=== PATIENT | male | born 1995 | race Hispanic/Latino ===

== ENCOUNTER 2021-07-16 12:17 | Emergency (ER) | payer SELFPAY ==
[2021-07-16] MEDS ORDERED: Fluorescein Opthalmic Strip ONE (12:42)
[2021-07-16] MEDS ORDERED: Proparacaine 0.5% Opth 15 ML BOT ONE (12:42)
[2021-07-16] MEDS ORDERED: HYDROcodone/Acetaminophen 10/325 mg Tablet ONE (13:27)
== END 2021-07-16 13:55 | disposition home or self-care (01) ==
LOC: ERS 12:17
DX: S05.02XA Injury of conjunctiva and corneal abrasion without foreign body, left eye, initial encounter (principal); W22.8XXA Striking against or struck by other objects, initial encounter
CPT/HCPCS: 99283

== ENCOUNTER 2021-11-11 11:23 | Outpatient (CLI) | payer BC | END 2021-11-11 11:24 | disposition home or self-care (01) | LOC: BICRAD 11:23 | PROVIDERS: ATTEND Family Medicine | DX: M54.32 Sciatica, left side (principal) | CPT/HCPCS: 72100 ==